=== PATIENT | female | born 1975 | race Caucasian/White ===

== ENCOUNTER 2017-06-04 01:36 | Emergency (ER) | payer OTHER ==
[~2017-06-04] VITALS: Ht 167.6 cm; Wt 79.4 kg
[2017-06-04 02:16] LABS: Basophils # (auto) 0 uL; Basophils % (auto) 0.5 % (0.0-2.0); Eosinophils # (auto) 0.2 uL; Eosinophils % (auto) 2.3 % (0.0-7.0); Hematocrit 35.7 % (36.0-46.0); Hemoglobin 11.8 g/dL (12.2-16.2); Lymphocytes # (auto) 1.8 uL; Lymphocytes % (auto) 25.9 % (10.0-50.0); Mean Corpuscular Hemoglobin 29.2 pg (28.0-32.0); Mean Corpuscular Volume 88.5 fL (80.0-100.0); Monocytes # (auto) 0.4 uL; Neutrophils # (auto) 4.7 uL; Neutrophils % (auto) 66.3 % (37.0-80.0); Platelet Count (auto) 322 10^3/uL (140-450); Red Blood Cells 4.03 10^6/uL (4.0-5.20); Red Cell Distribution Width 14.1 % (11.8-14.3)
[2017-06-04 02:38] LABS: Acetaminophen < 2.0 ug/mL (10-30); Alanine Aminotransferase 28 U/L (13-56); Albumin 3.7 g/dL (3.4-5.0); Anion Gap 7 (5-15); Aspartate Aminotransferase 15 U/L (15-37); BUN/Creatinine Ratio 27.9; Blood Alcohol < 3.0 mg/dL (0-5); Blood Urea Nitrogen 17 mg/dL (7-18); Calcium 8.8 mg/dL (8.5-10.1); Carbon Dioxide 26 mmol/L (21-32); Chloride 105 mmol/L (98-107); GFR African American 138 mL/min; GFR Non-African American 114 mL/min; Glucose 110 mg/dL (74-106); Magnesium 2.3 mg/dL (1.6-2.6); Potassium 3.9 mmol/L (3.5-5.1); Salicylate < 1.7 mg/dL (2.8-20.0); Sodium 138 mmol/L (136-145)
[2017-06-04 02:45] LABS: Alkaline Phosphatase 46 U/L (45-117); Bilirubin, Total 0.2 mg/dL (0.2-1.0); Total Protein 7.5 g/dL (6.4-8.2)
[2017-06-04 03:54] VITALS: BP 108/42
== END 2017-06-04 05:57 | disposition left against medical advice (07) ==
LOC: ER 01:36 → EDBD 01:36 → ER 05:57
DX: T43.211A Poisoning by selective serotonin and norepinephrine reuptake inhibitors, accidental (unintentional), initial encounter (principal); Z53.21 Procedure and treatment not carried out due to patient leaving prior to being seen by health care provider; X58.XXXA Exposure to other specified factors, initial encounter; Y93.89 Activity, other specified; Y99.8 Other external cause status; Y92.89 Other specified places as the place of occurrence of the external cause
CPT/HCPCS: 36415; 80053; 80320; 80329; 83735; 85025

== ENCOUNTER 2024-05-09 14:36 | Emergency (ER) | payer OTHER ==
[~2024-05-09] VITALS: Ht 167.6 cm; Wt 68.0 kg
[2024-05-09 14:36] VITALS: BP 114/75; RESP 18; O2SAT 100
[2024-05-09 15:12] LABS: Basophils # (auto) 0 10 ^3/uL (0-0.2); Basophils % (auto) 0.6 % (0.0-2.0); Eosinophils # (auto) 0.1 10 ^3/uL (0-0.8); Eosinophils % (auto) 2.3 % (0.0-7.0); Hematocrit 39.5 % (36.0-46.0); Hemoglobin 13.2 g/dL (12.2-16.2); Lymphocytes # (auto) 1.8 10 ^3/uL (0.4-5.4); Lymphocytes % (auto) 35.8 % (10.0-50.0); Mean Corpuscular Hgb Conc. 33.3 g/dL (32.0-36.0); Mean Corpuscular Volume 90.3 fL (80.0-100.0); Monocytes # (auto) 0.2 10 ^3/uL (0-1.3); Monocytes % (auto) 4.9 % (0.0-12.0); Neutrophils # (auto) 2.8 10 ^3/uL (1.6-8.6); Neutrophils % (auto) 56.4 % (37.0-80.0); Nucleated Red Blood Cells % 0.1 %; Platelet Count (auto) 320 10^3/uL (140-450); Red Blood Cells 4.38 10^6/uL (4.0-5.20); Red Cell Distribution Width 13.5 % (11.8-14.3); White Blood Cell 4.9 10^3/uL (4.4-10.8)
[2024-05-09 16:00] VITALS: PULSE 76
[2024-05-09 18:12] LABS: Urine Bacteria FEW /hpf (None Seen); Urine Blood Negative /uL (Negative); Urine Clarity Clear (Clear); Urine Color Colorless (Yellow); Urine Protein, UAD Negative (Negative); Urine Specific Gravity 1.005 (1.001-1.035); Urine Urobilinogen Normal (Negative); Urine WBC 1 /hpf (0 - 5)
== END 2024-05-09 19:33 | disposition left against medical advice (07) ==
LOC: ER 14:36
DX: R07.89 Other chest pain (principal); F17.200 Nicotine dependence, unspecified, uncomplicated
CPT/HCPCS: 36415; 71045; 81001; 84484; 85025; 93005